=== PATIENT | female | born 1945 | race Caucasian/White ===

== ENCOUNTER 2018-10-04 15:55 | Inpatient (IN) | payer MEDICARE ==
[~2018-10-04] VITALS: Ht 157.5 cm; Wt 54.0 kg
--- NOTE | 2018-10-04 07:05 | NUR ---
ADMITTED DIRECTLY FROM [facility], ON 5150 HOLD FOR GD. PATIENT CAME IN FOR INCREASED AGITATION. PATIENT SITTING AT THE EDGE OF THE BED, AWAKE, ALERT, ORIENTED X3. CAME TO THE UNIT AROUND 1905. UPON FACE TO FACE, SHE IS VERY UNCOOPERATIVE, ANGRY, IRRITABLE, REFUSED TO ANSWER QUESTIONS, REFUSED TO BE SEEN, SHE WANTS RN ONLY. PATIENT WAS DEMANDING HOSPICE CARE, THINKING SHE IS . NO APPARENT DISTRESS NOTED, A/O X3, RESPIRATION EVEN, BREATHING PATTERN NON-LABORED, SKIN ASSESSMENT DONE, PHOTOS TAKEN, FOR SKIN CONSULT. PATIENT IS VERY UNCOOPERATIVE AND COOPERATIVE AT THE SAME TIME. 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 BELONGINGS WERE INVENTORIED AND CHECKED FOR CONTRABAND. CALLED HER FRIEND VINCENZO, NOTIFIED OF ADMISSION. MED RECON DONE. BED LOCKED AND PLACED ON LOWEST POSITION. WILL CONTINUE TO MONITOR Q 15 MINS. FOR SAFETY AND BEHAVIOR.
[~2018-10-04 15:55] MED LIST: ACET650T11 PO; ATOR20TA PO; BRIN10DR LEFTEYE; CHOL100044 PO; DOCU-270 PO; FLUP10TA PO; LOSA50TA3 PO; MAG30ORA PO; METO25TA20 PO; OLME5TAB3 PO; TRIH2TAB3 PO
--- NOTE | 2018-10-04 16:00 | NUR ---
BIB PRIVATE AMBULANCE FROM [facility] FOR PSYCH ADMISSION. KEPT COMFORTABLE. WILL CONTINUE TO MONITOR ACCORDINGLY.
[2018-10-04 16:21] LABS: BASOPHILS % (AUTO) 0.5 % (0.0-2.0); EOSINOPHILS % (AUTO) 0.5 % (0.0-6.0); HEMATOCRIT 36 % (33-45); HEMOGLOBIN 12.3 g/dL (11.5-14.8); LYMPHOCYTES # (AUTO) 1.8 /CMM (0.8-4.8); LYMPHOCYTES % (AUTO) 21.6 % (20.0-44.0); MEAN CORPUSCULAR HGB CONC 34 g/dl (31.0-36.0); MEAN CORPUSCULAR VOLUME 96 fL (82-100); MONOCYTES # (AUTO) 1.1 /CMM (0.1-1.30); MONOCYTES % (AUTO) 12.7 % (2.0-12.0); NEUTROPHILS # (AUTO) 5.5 /CMM (1.8-8.9); NEUTROPHILS % (AUTO) 64.7 % (43.0-81.0); PLATELET COUNT (AUTO) 329 /CMM (150-450); RED BLOOD CELL COUNT(AUTO) 3.75 MIL/uL (4.0-5.2); WHITE BLOOD COUNT (AUTO) 8.4 K/uL (4.3-11.0)
[2018-10-04 16:33] LABS: CALCIUM, SERUM 8.7 mg/dL (8.5-10.1); CARBON DIOXIDE 29 mmol/L (21-32); CHLORIDE 97 mmol/L (98-107); CREATININE 0.7 mg/dL (0.6-1.3); GLUCOSE 105 mg/dL (74-106); SODIUM SERUM 132 mmol/L (136-145); UREA NITROGEN, BLOOD 14 mg/dL (7-18)
[2018-10-04] MEDS ORDERED: TEMA15CA PO (16:33)
[2018-10-04] MEDS ORDERED: SERT50TA PO (16:33)
[2018-10-04] MEDS ORDERED: FLUP5TAB PO (16:33)
[2018-10-04] MEDS ORDERED: CALC500T52 PO (16:33)
[2018-10-04] MEDS ORDERED: ALPR0.255 PO (16:33)
[2018-10-04 16:40] LABS: ACETAMINOPHEN < 2 ug/ml (10-30); ALANINE AMINOTRANSFERASE 26 U/L (12-78); ALBUMIN 3.7 g/dL (3.4-5.0); ALCOHOL, BLOOD < 3 mg/dL (0-0); ALKALINE PHOSPHATASE 72 U/L (46-116); ASPARTATE AMINOTRANSFERASE 30 U/L (15-37); BILIRUBIN,DIRECT 0.1 mg/dL (0.0-0.2); BILIRUBIN,TOTAL 0.5 mg/dL (0.2-1.0); SALICYLATE 0.9 mg/dL (2.8-20.0); TOTAL PROTEIN, SERUM 6.6 g/dL (6.4-8.2)
--- NOTE | 2018-10-04 18:10 | NUR ---
PT ADMIT TO ROOM 215-1 GPS DX PSYCH EVAL
--- NOTE | 2018-10-04 18:20 | NUR ---
OK TO TAKE THE PATIENT TO GPS WITHOUT THE URINE SAMPLE PER MD.
--- NOTE | 2018-10-04 18:24 | NUR ---
REPORT GIVEN TO JACQUES FOR MARQUITA.
--- NOTE | 2018-10-04 18:58 | NUR ---
wheeled patient via gurney accompanied by transport emt in no apparent distress noted. going to room 215.
--- NOTE | 2018-10-04 18:58 | NUR ---
PT. ARRIVED IN THE UNIT VIA A HOSPITAL BED AND WHEELED BY ER STAFF WITH OUTSIDE PSYCHIATRIST AND GLUE SPECIALTY SUPERVISOR. PT. PUT HER INITIAL FOR VOLUNTARY ADMISSION AND DR. RYAN MADE AWARE OF THE ADMISSION AND ORDERED TO PET CANDIDO. AND PETRA MADE AWARE. PSYCHIATRIST MADE ORDERS. Addendum: 10/04/18 at 1920 by SARITA CHOWDHURY RN ENDORSED TO INCOMING NURSE FOR THE COMPLETION OF THE ADMISSION.
[2018-10-04] MEDS ORDERED: Medication Not On Formulary EA (Acetaminophen 650 MG) PO PRN (19:00)
[2018-10-04] MEDS ORDERED: MAGNESIUM HYDROXIDE 30 ML UDC PO PRN (19:30)
[2018-10-04] MEDS ORDERED: MAG HYDROX/AL HYDROX/SIMETH 30 ML UDC PO PRN (19:30)
[2018-10-04] MEDS ORDERED: ACETAMINOPHEN 325 MG TABLET PO PRN (19:30)
[2018-10-04 20:00] VITALS: BP 128/95
[2018-10-05] MEDS: CALCIUM CARBONATE (1250) 500 MG TABLET PO SCH (09:00)
[2018-10-05] MEDS: CHOLECALCIFEROL 1,000 UNIT TABLET (VIT D3) PO SCH (09:00)
[2018-10-05] MEDS: ATORVASTATIN 10 MG TABLET PO SCH (09:00)
[2018-10-05] MEDS ORDERED: TRIHEXYPHENIDYL HCL 2 MG TABLET PO SCH (09:00)
[2018-10-05] MEDS: DOCUSATE SODIUM 100 MG CAPSULE PO SCH (09:00)
[2018-10-05 11:17] LABS: CHOLESTEROL 169 mg/dL (<200); HDL CHOLESTEROL 98 mg/dL (40-60); LDL 68 mg/dL (0-99); TRIGLYCERIDES 69 mg/dL (30-150)
[2018-10-05 11:22] LABS: ALANINE AMINOTRANSFERASE 29 U/L (12-78); ALBUMIN 4.2 g/dL (3.4-5.0); ALKALINE PHOSPHATASE 76 U/L (46-116); ASPARTATE AMINOTRANSFERASE 34 U/L (15-37); BILIRUBIN,TOTAL 0.8 mg/dL (0.2-1.0); CALCIUM, SERUM 9.4 mg/dL (8.5-10.1); CARBON DIOXIDE 25 mmol/L (21-32); CHLORIDE 94 mmol/L (98-107); CREATININE 0.8 mg/dL (0.6-1.3); GLUCOSE 115 mg/dL (74-106); POTASSIUM 3.5 mmol/L (3.5-5.1); SODIUM SERUM 128 mmol/L (136-145); TOTAL PROTEIN, SERUM 7.5 g/dL (6.4-8.2); UREA NITROGEN, BLOOD 11 mg/dL (7-18)
[2018-10-05] MEDS: FLUPHENAZINE HCL 10 MG TABLET PO SCH ×2 (13:00→17:00)
[2018-10-05] MEDS: TRIHEXYPHENIDYL HCL 2 MG TABLET PO SCH ×2 (13:00→17:40)
[2018-10-06 07:35] LABS: CALCIUM, SERUM 8.8 mg/dL (8.5-10.1); CARBON DIOXIDE 28 mmol/L (21-32); CHLORIDE 98 mmol/L (98-107); CREATININE 0.8 mg/dL (0.6-1.3); GLUCOSE 101 mg/dL (74-106); POTASSIUM 3.7 mmol/L (3.5-5.1); SODIUM SERUM 137 mmol/L (136-145); UREA NITROGEN, BLOOD 17 mg/dL (7-18)
[2018-10-06 08:00] VITALS: BP 141/65
[2018-10-06] MEDS: TRIHEXYPHENIDYL HCL 2 MG TABLET PO SCH ×3 (09:35→17:49)
[2018-10-06] MEDS: FLUPHENAZINE HCL 10 MG TABLET PO SCH ×3 (09:35→17:49)
[2018-10-06] MEDS: CHOLECALCIFEROL 1,000 UNIT TABLET (VIT D3) PO SCH (09:36)
[2018-10-06] MEDS: ATORVASTATIN 10 MG TABLET PO SCH (09:36)
[2018-10-06] MEDS: DOCUSATE SODIUM 100 MG CAPSULE PO SCH (09:37)
[2018-10-06] MEDS: CALCIUM CARBONATE (1250) 500 MG TABLET PO SCH (09:37)
--- NOTE | 2018-10-06 13:06 | NUR ---
Initial Discharge Instructions: Patient currently lives at home alone [[address] [place] [address]; [phone]]. Per pt, she is "evicted from my house because I didn't pay the rent." Patient believes she is homeless. VINICIO spoke with pt's private social group worker, Mel Ny [facility] who stated that the patient is not evicted, has multiple resources, and a strong support system. Plan is for pt to return home upon discharge. Per Mel, she is looking to hire a private caregiver for the patient for about 4 hours a day when she is discharged through [facility]. VINICIO will continue to collaborate with pt, family, support system, and MD regarding most appropriate discharge plans for this patient. VINICIO will form a safe and proper discharge plan.
[2018-10-06 16:00] VITALS: BP 159/75
[2018-10-06 20:00] VITALS: BP 154/72
[2018-10-06] MEDS: LORAZEPAM 0.5 MG TABLET PO PRN (22:11)
[2018-10-07] MEDS: DOCUSATE SODIUM 100 MG CAPSULE PO SCH (08:49)
[2018-10-07] MEDS: TRIHEXYPHENIDYL HCL 2 MG TABLET PO SCH ×4 (08:49→17:44)
[2018-10-07] MEDS: FLUPHENAZINE HCL 10 MG TABLET PO SCH ×4 (08:49→17:44)
[2018-10-07] MEDS: CALCIUM CARBONATE (1250) 500 MG TABLET PO SCH (08:50)
[2018-10-07] MEDS: ATORVASTATIN 10 MG TABLET PO SCH (08:50)
[2018-10-07] MEDS: CHOLECALCIFEROL 1,000 UNIT TABLET (VIT D3) PO SCH (08:50)
--- NOTE | 2018-10-07 09:43 | NUR ---
WOUND CARE CONSULT: PT REFUSED FULL SKIN ASSESSMENT AND STATED " I WILL HAVE YOU ARRESTED IF YOU TOUCH ME". PT NOTED TO HAVE BRUISING WITH DRY ABRASIONS TO FACE AND NECK WELL DRY ABRASION TO LEFT HAND, PRESENT ON ADMISSION. WILL SEE PT PT CONDITION PERMITS. PT IS AMBULATORY AND CONTINENT.
--- NOTE | 2018-10-07 13:48 | NUR ---
GPS RN NOTE INFORMED PT OF 5250 HOLD STATUS, PT VERBALIZED UNDERSTANDING AND STATED "THANK YOU I APPRECIATE THAT".
[2018-10-07 22:00] VITALS: BP 123/70
[2018-10-08 08:00] VITALS: BP 121/53
[2018-10-08] MEDS: TRIHEXYPHENIDYL HCL 2 MG TABLET PO SCH ×3 (08:00→17:13)
[2018-10-08] MEDS: DOCUSATE SODIUM 100 MG CAPSULE PO SCH (09:56)
[2018-10-08] MEDS: ATORVASTATIN 10 MG TABLET PO SCH (09:58)
[2018-10-08] MEDS: CALCIUM CARBONATE (1250) 500 MG TABLET PO SCH (09:59)
[2018-10-08] MEDS: FLUPHENAZINE HCL 10 MG TABLET PO SCH ×3 (09:59→16:39)
[2018-10-08] MEDS: CHOLECALCIFEROL 1,000 UNIT TABLET (VIT D3) PO SCH (09:59)
--- NOTE | 2018-10-08 10:04 | NUR ---
VINICIO received a call from pt's private social worker masters, Mel Ny ([phone]), [facility] and the pt's progress and medications were discussed as well as discharge planning. VINICIO Ny stated that she is currently working on getting a private caregiver for the pt for when she is discharged from the hospital to assist her at home. The pt's delusions regarding her finances were also discussed so that the reality of the situation was understood.
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
--- NOTE | 2018-10-08 15:38 | NUR ---
IVNICIO called the pt's private social welfare research worker, Mel Ny ([phone]), and informed her that the pt will be discharged on Saturday and that the SW will give her a call back on Saturday to discuss the time and the private caregiver that will be arranged for her by then.
[2018-10-08 16:00] VITALS: BP 115/64
[2018-10-08 20:33] VITALS: BP 119/44
[2018-10-08] MEDS: TEMAZEPAM 7.5 MG CAPSULE PO PRN (21:13)
[2018-10-09 08:00] VITALS: BP 150/70
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
--- NOTE | 2018-10-09 08:30 | NUR ---
THREW ATIVAN 0.5 MG PILL IN THE DISPENSER WITNESSED BY CO-RNALEA.
[2018-10-09] MEDS: DOCUSATE SODIUM 100 MG CAPSULE PO SCH ×2 (08:51→09:00)
[2018-10-09] MEDS: CHOLECALCIFEROL 1,000 UNIT TABLET (VIT D3) PO SCH (08:51)
[2018-10-09] MEDS: ATORVASTATIN 10 MG TABLET PO SCH ×2 (08:51→09:00)
[2018-10-09] MEDS: LORAZEPAM 0.5 MG TABLET PO PRN (08:51)
[2018-10-09] MEDS: TRIHEXYPHENIDYL HCL 2 MG TABLET PO SCH ×3 (08:51→17:13)
[2018-10-09] MEDS: FLUPHENAZINE HCL 10 MG TABLET PO SCH ×3 (08:51→16:44)
[2018-10-09] MEDS: CALCIUM CARBONATE (1250) 500 MG TABLET PO SCH (08:51)
[2018-10-09] MEDS ORDERED: NALOXONE PREFILLED SYRINGE 2 MG/2 ML SYRINGE ONE (08:57)
[2018-10-09 16:00] VITALS: BP 145/64
--- NOTE | 2018-10-09 17:28 | NUR ---
PT WANTS TO TAKE PROLIXIN AND ARTANE PILLS AFTER 6PM BECAUSE PT STATED THAT SHE IS HAVING STROKE AT THIS TIME.REORIENTATION GIVEN OF HER CONDITION AND WHAT THE PILLS ARE FOR.PT STATED THAT SHE WILL TAKE THEM LATER BECAUSE HER BRAIN IS BLEEDING AT THIS TIME.
[2018-10-09 20:00] VITALS: BP 157/71
--- NOTE | 2018-10-10 01:00 | NUR ---
GPS RN NOTE: PATIENT AWAKE, DISROBBED SELF, GUARDED, QUIET, ISOLATIVE, EASILY AGITATED, REDIRECTED THE PATIENT, OFFERED SLEEPING PILLS X 3, PATIENT REFUSED, EXPLAINED THE RISK AND BENEFITS BUT PATIENT STILL REFUSED. WILL CONTINUE TO MONITOR [id number] FOR SAFETY
[2018-10-10 08:00] VITALS: BP 150/87
[2018-10-10] MEDS: CHOLECALCIFEROL 1,000 UNIT TABLET (VIT D3) PO SCH (08:30)
[2018-10-10] MEDS: TRIHEXYPHENIDYL HCL 2 MG TABLET PO SCH ×3 (08:30→17:11)
[2018-10-10] MEDS: DOCUSATE SODIUM 100 MG CAPSULE PO SCH (08:30)
[2018-10-10] MEDS: ATORVASTATIN 10 MG TABLET PO SCH (08:30)
[2018-10-10] MEDS: FLUPHENAZINE HCL 10 MG TABLET PO SCH ×3 (08:30→17:11)
[2018-10-10] MEDS: CALCIUM CARBONATE (1250) 500 MG TABLET PO SCH (08:31)
[2018-10-10 16:03] VITALS: BP 121/69
[2018-10-10 20:27] VITALS: BP 132/91
[2018-10-11 08:00] VITALS: BP 148/73
[2018-10-11] MEDS: DOCUSATE SODIUM 100 MG CAPSULE PO SCH (09:03)
[2018-10-11] MEDS: CALCIUM CARBONATE (1250) 500 MG TABLET PO SCH (09:04)
[2018-10-11] MEDS: TRIHEXYPHENIDYL HCL 2 MG TABLET PO SCH ×3 (09:04→17:01)
[2018-10-11] MEDS: FLUPHENAZINE HCL 10 MG TABLET PO SCH ×3 (09:04→17:01)
[2018-10-11] MEDS: CHOLECALCIFEROL 1,000 UNIT TABLET (VIT D3) PO SCH (09:04)
[2018-10-11] MEDS: ATORVASTATIN 10 MG TABLET PO SCH (09:04)
[2018-10-11 15:51] VITALS: BP 150/71
[2018-10-11 20:00] VITALS: BP 140/75
[2018-10-12 08:00] VITALS: BP 152/94
[2018-10-12] MEDS: TRIHEXYPHENIDYL HCL 2 MG TABLET PO SCH ×4 (08:00→17:22)
[2018-10-12] MEDS: CALCIUM CARBONATE (1250) 500 MG TABLET PO SCH (09:00)
[2018-10-12] MEDS: FLUPHENAZINE HCL 10 MG TABLET PO SCH ×4 (09:00→17:22)
[2018-10-12] MEDS: ATORVASTATIN 10 MG TABLET PO SCH (09:00)
[2018-10-12] MEDS: DOCUSATE SODIUM 100 MG CAPSULE PO SCH (09:00)
[2018-10-12] MEDS: CHOLECALCIFEROL 1,000 UNIT TABLET (VIT D3) PO SCH (09:00)
--- NOTE | 2018-10-12 09:00 | NUR ---
RN NOTES PATIENT REFUSED BREAKFAST, REFUSED MEDICATION. PATIENT DELUSIONAL, DISORGANIZED THOUGHT, PARANOID, ANXIOUS. PATIENT STATE" I AM AND WAITING FOR CREMATION". PSYCHIATRIST, AND MULTIMEDIA AUTHOR AWARE OF. SAFETY PRECAUTION MAINTAINED ALL THE TIME.
[2018-10-12 16:00] VITALS: BP 133/73
[2018-10-12 20:07] VITALS: BP 123/69
[2018-10-13 08:00] VITALS: BP 127/63
[2018-10-13] MEDS: CALCIUM CARBONATE (1250) 500 MG TABLET PO SCH (08:10)
[2018-10-13] MEDS: CHOLECALCIFEROL 1,000 UNIT TABLET (VIT D3) PO SCH (08:10)
[2018-10-13] MEDS: DOCUSATE SODIUM 100 MG CAPSULE PO SCH (08:10)
[2018-10-13] MEDS: FLUPHENAZINE HCL 10 MG TABLET PO SCH ×5 (08:11→17:02)
[2018-10-13] MEDS: ATORVASTATIN 10 MG TABLET PO SCH (08:11)
--- NOTE | 2018-10-13 09:20 | NUR ---
Mel Ny ([phone]), pt's social science manager, called the SW and inquired about the pt's discharge. The SW stated that once the psychiatrist comes in and evaluates the pt, we can determine whether or not the pt will be discharged home with a caregiver. SW attempted to explain that at the inpatient level, there is a criteria and if the pt meets it then they do not need to be at this level of care. SW stated that she would call the pt's social science manager when there is an update.
--- NOTE | 2018-10-13 09:23 | NUR ---
VINICIO called the pt's psychiatrist's, Dr. Bailey, doctor's office ([phone]), and informed them that the pt's social service agency director would like Dr. Bailey to speak to our psychiatrist, Dr. Cm. VINICIO stated that she cannot guarantee a call from the psychiatrist at [facility] but if Dr. Bailey would like to make contact then to call and leave a message.
--- NOTE | 2018-10-13 09:25 | NUR ---
SW called the pt's cousin, Kelsi ([phone]), and left a voicemail stating that the SW would like to discuss the pt with her.
[2018-10-13] MEDS: TRIHEXYPHENIDYL HCL 5 MG TABLET PO SCH ×2 (10:16→17:02)
[2018-10-13 16:00] VITALS: BP 126/50
[2018-10-13 19:44] VITALS: BP 134/63
[2018-10-14 08:00] VITALS: BP 116/82
[2018-10-14] MEDS: TRIHEXYPHENIDYL HCL 5 MG TABLET PO SCH ×3 (08:00→17:49)
[2018-10-14] MEDS: CHOLECALCIFEROL 1,000 UNIT TABLET (VIT D3) PO SCH (08:15)
[2018-10-14] MEDS: ATORVASTATIN 10 MG TABLET PO SCH ×2 (08:15→08:27)
[2018-10-14] MEDS: FLUPHENAZINE HCL 10 MG TABLET PO SCH ×4 (08:15→17:52)
[2018-10-14] MEDS: DOCUSATE SODIUM 100 MG CAPSULE PO SCH (08:15)
[2018-10-14] MEDS: LORAZEPAM 0.5 MG TABLET PO PRN ×2 (08:15→08:29)
[2018-10-14 08:20] VITALS: BP 116/82
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
[2018-10-14] MEDS: CALCIUM CARBONATE (1250) 500 MG TABLET PO SCH ×2 (09:00→17:52)
[2018-10-14] MEDS: ENSURE ENLIVE 237 ML LIQUID (VANILLA) PO SCH ×3 (09:30→16:31)
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
--- NOTE | 2018-10-14 13:15 | NUR ---
VINICIO called eMl Ny ([phone]), pt's manager social, and informed her that the pt will not be discharging today because there is no discharge order in the chart and the pt has not made enough progress at this point in time. She stated that she agreed and that she is going to take care of the private spring coiling machine setter.
--- NOTE | 2018-10-14 13:19 | NUR ---
VINICIO called the pt's cousin, Kelsi ([phone]), and informed her the pt's psychiatrist, Dr. Cm, is recommending a snf facility due to the pt's condition. Pt's cousin stated that she would prefer the private social security benefits interviewer and the private psychiatrist to make decisions regarding discharge.
--- NOTE | 2018-10-14 13:23 | NUR ---
SW called Mel Ny ([phone]), pt's private manager social media, and informed her about the plan to discharge the pt to a fpc facility but she stated that she does not agree with the plan and neither does the pt's DPOA (Kelsi). She asked the SW to have the psychiatrist, Dr. Cm, call her and explain the SNF rationale.
--- NOTE | 2018-10-14 13:47 | NUR ---
VINICIO faxed a referral to [facility] (with attention to [place]) to the fax number: [phone].
--- NOTE | 2018-10-14 14:43 | NUR ---
SW was contacted by Edwin ([phone]) from [facility] and he stated that the pt was denied acceptance to the facility.
--- NOTE | 2018-10-14 15:17 | NUR ---
Mel Ny ([phone]), pt's private delinquency prevention social worker, called the SW and stated that she is requesting that the SW fax a referral to [facility].
[2018-10-14 15:54] VITALS: BP 120/84
--- NOTE | 2018-10-14 16:08 | NUR ---
VINICIO faxed a referral to [facility] (attention to [place]) to the fax number: [phone].
[2018-10-14] MEDS: LORAZEPAM 0.5 MG TABLET PO SCH (17:49)
[2018-10-14 20:07] VITALS: BP 121/69
[2018-10-15 08:00] VITALS: BP 154/74
[2018-10-15] MEDS: FLUPHENAZINE HCL 10 MG TABLET PO SCH ×3 (08:07→16:11)
[2018-10-15] MEDS: DOCUSATE SODIUM 100 MG CAPSULE PO SCH (08:07)
[2018-10-15] MEDS: CHOLECALCIFEROL 1,000 UNIT TABLET (VIT D3) PO SCH (08:08)
[2018-10-15] MEDS: TRIHEXYPHENIDYL HCL 5 MG TABLET PO SCH ×2 (08:08→17:17)
[2018-10-15] MEDS: ATORVASTATIN 10 MG TABLET PO SCH (08:08)
[2018-10-15] MEDS: LORAZEPAM 0.5 MG TABLET PO SCH ×3 (08:08→16:11)
[2018-10-15] MEDS: CALCIUM CARBONATE (1250) 500 MG TABLET PO SCH (08:08)
--- NOTE | 2018-10-15 08:10 | NUR ---
SW received a voicemail from Merari ([phone]) from [facility] and she stated that the pt was denied admission to their facility.
[2018-10-15] MEDS: ENSURE ENLIVE 237 ML LIQUID (VANILLA) PO SCH ×3 (08:23→16:15)
--- NOTE | 2018-10-15 08:40 | NUR ---
Mel Ny ([phone]), pt's private renal social worker, called the SW and it was discussed that the [facility] denied the pt. SW stated that the previous discharge plan of having the pt return with a caregiver is acceptable to the psychiatrist. SW stated that the pt will be discharged either on or Saturday.
--- NOTE | 2018-10-15 09:37 | NUR ---
VINICIO submitted an Adult Protective Services Report. The report (Intake ID [id number]) was successfully submitted on 10/15/2018 at 9:24 AM.
[2018-10-15 16:00] VITALS: BP 126/64
--- NOTE | 2018-10-15 16:08 | NUR ---
VINICIO called Mel Ny ([phone]), pt's private social work msw, and informed her that the pt will be discharging on Saturday.
[2018-10-15 20:00] VITALS: BP 119/69
[2018-10-15 20:07] VITALS: BP 119/69
[2018-10-16 08:00] VITALS: BP 148/78
[2018-10-16] MEDS: TRIHEXYPHENIDYL HCL 5 MG TABLET PO SCH ×2 (08:59→17:02)
[2018-10-16] MEDS: ENSURE ENLIVE 237 ML LIQUID (VANILLA) PO SCH ×3 (09:00→17:00)
[2018-10-16] MEDS: DOCUSATE SODIUM 100 MG CAPSULE PO SCH (09:01)
[2018-10-16] MEDS: LORAZEPAM 0.5 MG TABLET PO SCH ×3 (09:01→17:01)
[2018-10-16] MEDS: CHOLECALCIFEROL 1,000 UNIT TABLET (VIT D3) PO SCH (09:01)
[2018-10-16] MEDS: FLUPHENAZINE HCL 10 MG TABLET PO SCH ×3 (09:01→17:01)
[2018-10-16] MEDS: CALCIUM CARBONATE (1250) 500 MG TABLET PO SCH (09:01)
[2018-10-16] MEDS: ATORVASTATIN 10 MG TABLET PO SCH (09:01)
--- NOTE | 2018-10-16 13:01 | NUR ---
SW called Mel Ny ([phone]), pt's private social services coordinator, and informed her that the pt will be discharging on Saturday. Pt's social services coordinator stated that she will be able to pick her up around 2pm.
--- NOTE | 2018-10-16 15:01 | NUR ---
VINICIO called the pt's cousin, Lizett ([phone]), and left a message stating that the pt will be discharged home tomorrow with a caregiver.
--- NOTE | 2018-10-16 15:03 | NUR ---
VINICIO called the pt's cousin, Kelsi ([phone]), and informed her that the pt will be discharged from the hospital to her home with a caregiver and home health. She stated that she believes that the pt has been making progress and will have support at her home.
[2018-10-16 15:59] VITALS: BP 148/84
[2018-10-16 20:00] VITALS: BP 145/76
[2018-10-16] MEDS: TEMAZEPAM 7.5 MG CAPSULE PO PRN (20:50)
--- NOTE | 2018-10-16 20:50 | NUR ---
TEMAZEPAM 7.5 MG CAP PO GIVEN FOR SLEEP.
[2018-10-17 07:47] LABS: BASOPHILS % (AUTO) 0.7 % (0.0-2.0); HEMATOCRIT 39 % (33-45); HEMOGLOBIN 13.2 g/dL (11.5-14.8); LYMPHOCYTES # (AUTO) 1.6 /CMM (0.8-4.8); LYMPHOCYTES % (AUTO) 27.2 % (20.0-44.0); MEAN CORPUSCULAR HGB CONC 34 g/dl (31.0-36.0); MEAN CORPUSCULAR VOLUME 95 fL (82-100); MONOCYTES # (AUTO) 0.6 /CMM (0.1-1.30); MONOCYTES % (AUTO) 10.1 % (2.0-12.0); NEUTROPHILS # (AUTO) 3.4 /CMM (1.8-8.9); PLATELET COUNT (AUTO) 471 /CMM (150-450); RED BLOOD CELL COUNT(AUTO) 4.05 MIL/uL (4.0-5.2); WHITE BLOOD COUNT (AUTO) 5.7 K/uL (4.3-11.0)
[2018-10-17 08:00] VITALS: BP 129/76
[2018-10-17 08:01] LABS: CALCIUM, SERUM 9.3 mg/dL (8.5-10.1); CARBON DIOXIDE 30 mmol/L (21-32); CHLORIDE 102 mmol/L (98-107); CREATININE 0.8 mg/dL (0.6-1.3); GLUCOSE 102 mg/dL (74-106); POTASSIUM 3.9 mmol/L (3.5-5.1); SODIUM SERUM 139 mmol/L (136-145); UREA NITROGEN, BLOOD 14 mg/dL (7-18)
[2018-10-17] MEDS: ENSURE ENLIVE 237 ML LIQUID (VANILLA) PO SCH ×2 (09:00→12:32)
[2018-10-17] MEDS: ATORVASTATIN 10 MG TABLET PO SCH (09:32)
[2018-10-17] MEDS: TRIHEXYPHENIDYL HCL 5 MG TABLET PO SCH (09:32)
[2018-10-17] MEDS: CHOLECALCIFEROL 1,000 UNIT TABLET (VIT D3) PO SCH (09:32)
[2018-10-17] MEDS: CALCIUM CARBONATE (1250) 500 MG TABLET PO SCH (09:32)
[2018-10-17] MEDS: DOCUSATE SODIUM 100 MG CAPSULE PO SCH (09:32)
[2018-10-17] MEDS: LORAZEPAM 0.5 MG TABLET PO SCH ×2 (09:32→12:31)
[2018-10-17] MEDS: FLUPHENAZINE HCL 10 MG TABLET PO SCH ×2 (09:32→12:31)
--- NOTE | 2018-10-17 10:10 | NUR ---
SW called Mel Ny ([phone]), pt's private social media marketing specialist, and discussed the pt being discharged today at 1pm. Mel asked the SW to speak to the pt about her discharge and the SW stated that she would.
--- NOTE | 2018-10-17 10:13 | NUR ---
SW went in to discuss the discharge plan with the pt and she stated that she "is not ready to go home and leave the hospital." SW informed her that her doctor believes that she is ready and that she has a caregiver who will be looking after her at her home. Pt refused to listen to the SW and stated that she wanted to speak to the doctor when she arrives.
--- NOTE | 2018-10-17 10:15 | NUR ---
SW called Mel Juradoliliana ([phone]), pt's private social service liaison, and informed her that the pt is stating that she is not ready to be discharged and that she is refusing to go home. Mel asked what the protocol is when a pt is being discharged and the SW stated that security is called as an escort if they are still refusing after all attempts. Mel stated that she wants the doctor to speak to the pt before she is discharged.
--- NOTE | 2018-10-17 10:57 | NUR ---
VINICIO informed the psychiatrist, Dr. Cm, that the pt is receiving to be discharged today and she stated that she would be arriving to the hospital soon to speak to her.
--- NOTE | 2018-10-17 10:58 | NUR ---
VINICIO faxed a discharge packet to the pt's psychiatrist, Dr. John Bailey, to the fax number: [phone].
--- NOTE | 2018-10-17 11:35 | NUR ---
VINICIO provided the pt with a list of Medicare accepting psychiatrists due to a concern with her current psychiatrist. SW also left a copy of the list of referrals in the pt's chart. The list is also provided below: Medicare.gov Accepting Psychiatric Referrals and Additional Services AMANDA PIERCE Primary specialty: Psychiatry [address] [place] [address] AMANDA BELL Primary specialty: Psychiatry [address] [place] [address] BAKARI AREVALOEN [place] Primary specialty: Psychiatry [address] [place] [address] ZENA JAY Primary specialty: Psychiatry [address] [place] [address] JANIS LEDEZMA Primary specialty: Psychiatry [address] [place] [address] JERRY TOO Primary specialty: Psychiatry [address] [place] [address] Show all locations for JERRY TOO ALBANIA FULLER Primary specialty: Psychiatry [address] [place] [address] KATHLEEN RAJA Primary specialty: Psychiatry [address] [place] [address] VINICIOARNALNADEEMA RAMDEV Primary specialty: Psychiatry [address] [place] [address] LIO CHEY Primary specialty: Psychiatry [address] [place] [address] OMAIRA CARRASCO Primary specialty: Psychiatry [address] [place] [address] SONIA MALIK Primary specialty: Psychiatry [address] [place] [address] LAYNE HASSAN Primary specialty: Psychiatry Additional specialty: Psychiatry (Geriatric) [address] [place] [address] MULU BELTRÁN Primary specialty: Psychiatry Additional specialty: Psychiatry (Geriatric) [address] [place] [address] IGGY KEN Primary specialty: Psychiatry Additional specialty: Psychiatry (Geriatric) [address] [place] [address] SAMINA AUGUSTE Primary specialty: Psychiatry Additional specialty: Psychiatry (Geriatric) [address] [place] [address] RADHA ARMSTRONG Primary specialty: Psychiatry Additional specialty: Psychiatry (Geriatric) [address] [place] [address] RAFA CALLAHAN Primary specialty: Psychiatry Additional specialty: Psychiatry (Geriatric) [address] [place], [place] [address] JOSE ARMANDO LOCO Primary specialty: Psychiatry Additional specialty: Psychiatry (Geriatric) [address] [place] [address] RODNEY OLIVAS Primary specialty: Psychiatry (Geriatric) [address] [place], [place] [id number] (860) TRENA FORTUNE Primary specialty: Psychiatry Additional specialties: Addiction medicine, Psychiatry (Geriatric) [address] [place] [address] CAROLYN WHEAT Primary specialty: Psychiatry (Geriatric) Additional specialty: Psychiatry [address] [place] [address] SAMANTHA CARNEY Primary specialty: Psychiatry (Geriatric) [address] [place] [address] KATHLEEN OBANDO Primary specialty: Psychiatry (Geriatric) [address] [place] [address] AMEYA ARBOLEDA Primary specialty: Psychiatry (Geriatric) [address] [place] [address] BAIRON DIAZ Primary specialty: Psychiatry (Geriatric) [address] [place] [address] MICAH KIM Primary specialty: Psychiatry (Geriatric) [address] [place] [address] ALISON FLORES Primary specialty: Psychiatry (Geriatric) [address] [place] [address] ADRIÁN FERGUSON Primary specialty: Psychiatry (Geriatric) Additional specialty: Psychiatry [address] [place] [address] KISHA TOMLIN Primary specialty: Psychiatry (Geriatric) [address] [place] [address] FIFI ESPAÑA Primary specialty: Psychiatry Additional specialty: Psychiatry (Geriatric) [address] [place] [address] BRYANNA CHIN Primary specialty: Psychiatry Additional specialty: Psychiatry (Geriatric) [address] [place] [address] [facility] Physicians [phone] ? Additional Services [facility] 15/04 HELPLINE [email or web address] [facility] General Services Suicide Prevention Crisis Line [email or web address] [facility], [facility]. [phone] [email or web address] -Older Adult Mental Health Programs [facility] Outpatient Treatment (Dish Room Worker Coordinator Luciana) M-F 10:30 am 1:40 pm (Patients may attend from 2-4 days weekly)
--- NOTE | 2018-10-17 11:36 | NUR ---
VINICIO faxed a home health referral to [facility] to the fax number: [phone].
--- NOTE | 2018-10-17 13:53 | NUR ---
GPS/RN-NOTES PATIENT WAS DISCHARGE TO HOME TODAY DR. RYAN AND SRI YAÑEZ AWARE AND AGREES WITH ORDERS. PATIENT DID NOT VERBALIZE SI/HI ,DENIES VISUAL /AUDITORY HALLUCINATIONS AT THE TIME OF DISCHARGE. ALL DISCHARGE PAPERS WAS SIGN BY THE PATIENT INCLUDING BELONGING LIST. ALL DISCHARGE MEDICATIONS WAS REVIEWED WITH THE PATIENT AND THE PATIENT CAREGIVER WITH UNDERSTANDING . RX AND BELONGINGS WAS ENDORSED AND GIVEN TO PATIENT VINICIO POTTER. PATIENT LEFT THE UNIT IN STABLE CONDITION,ALERT ORIENTED X4 AMBULATORY WITH STEADY GAIT.PATIENT WAS DIRECTOR OF MANAGED CARE BY ROLDAN (PT. SW) AND FUNDRAISING DIRECTOR ZHANNA VIA PRIVATE CAR. PATIENT WAS ASSISTED BY ONE FOOD PREPARER STAFF VIA WHEELCHAIR IN THE LOBBY FOR SAFETY.
--- NOTE | 2018-10-17 16:02 | NUR ---
Discharge Note: Pt was discharged home to [facility] [address] [address]; ([phone]). Pt was picked up by her private Customer Service Supervisor, Mel Ny ([phone]), around 2PM. Pt will have a caregiver at home to look after her. VINICIO also sent a home health referral for the pt to [facility]. VINICIO also provided the pt with psychiatrist referrals in the case that she wants to make a change. Pt appeared to be in a dysphoric mood and presented with an irritated affect. Pt stated that she denies both suicidal and homicidal ideation as well as auditory and visual hallucinations. Pt will be in the care of her psychiatrist, Dr. John Bailey, located at [address] [facility] [address] [facility] [address], [place] [address]; and her fagoting machine operator, Dr. Emmanuel Cho, located at [address] [facility] [address], [place] [address]; .
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
--- NOTE | 2018-10-23 16:16 | NUR ---
SW called Mel Ny ([phone]), pt's private older adult social work specialist, and attempted to leave her a voicemail but her mailbox was full.
== END 2018-10-17 13:55 | disposition home health service (06) | DRG 885 ==
LOC: ER 16:00 → GPS 18:23
PROVIDERS: ADMIT Psychiatry & Neurology Psychosomatic Medicine; ATTEND Psychiatry & Neurology Psychosomatic Medicine
DX: F25.0 Schizoaffective disorder, bipolar type (principal); E87.1 Hypo-osmolality and hyponatremia; E78.5 Hyperlipidemia, unspecified; G20 Parkinson's disease; F41.9 Anxiety disorder, unspecified; I10 Essential (primary) hypertension; F29 Unspecified psychosis not due to a substance or known physiological condition; Z91.19 Patient's noncompliance with other medical treatment and regimen
CPT/HCPCS: 36415; 71045-TC; 80048-TC; 80053-TC; 80061-TC; 80076-TC; 82962-TC; 85025-TC; 87081-TC; G0480; J2310